=== PATIENT | male | born 1955 | race Hispanic/Latino ===

== ENCOUNTER 2018-11-19 10:24 | Day surgery (SDC) | payer OTHER ==
[2018-11-19] MEDS ORDERED: GENTAMICIN 80 MG/100 ML BAG 80 MG/100 ML BAG IV ONE (11:00)
[2018-11-19] MEDS ORDERED: NA CHLORIDE 0.9% 1,000 ML ONE (11:00)
[2018-11-19] MEDS ORDERED: PROPOFOL 200 MG/20 ML VIAL IV ONE (11:33)
[2018-11-19] MEDS ORDERED: LIDOCAINE JELLY 2%- 5 ML TUBE ONE (11:34)
[2018-11-19] MEDS ORDERED: FENTANYL CITR 100 MCG/2 ML ONE (11:34)
[2018-11-19] MEDS ORDERED: MIDAZOLAM HCL 2 MG/2 ML INJ ONE (11:34)
[2018-11-19] MEDS ORDERED: OXYBUTYNIN CHLORIDE 5 MG TAB ONE (15:05)
[2018-11-19] MEDS ORDERED: HYDROCODONE/APAP 10/325 TAB ONE (15:05)
[2018-11-19] MEDS ORDERED: TRAMADOL HCL 50 MG TAB PO PRN (18:15)
[2018-11-19] MEDS ORDERED: DIPHENHYDRAMINE 25 MG TAB/CAP PO PRN (18:16)
[2018-11-19] MEDS ORDERED: D50W 25 GM/50 ML SYRINGE IV PRN (19:47)
[2018-11-19] MEDS ORDERED: GLUCAGON 1 MG/VIAL IM PRN (19:47)
[2018-11-19] MEDS ORDERED: HYDRALAZINE HCL 20 MG/ML VIAL IV PRN (19:49)
[2018-11-19] MEDS ORDERED: NACHLORIDE 0.45% 1,000 ML with POTASSIUM CL 20 MEQ IV SCH ×2 (20:00)
[2018-11-19] MEDS ORDERED: NA CHLORIDE 0.9% 1,000 ML IV SCH (20:00)
--- NOTE | 2018-11-19 20:06 | P.CNS ---
Date of Consult: 11/19/18 Reason for Consult: medical management Requesting Physician: Kaleigh Montes Primary Care Provider: Dr Arredondo. Chief Complaint: S/P TURP History of Present Illness: Mr Kat is a 63 years old male with history of DM II, HTN and CVA, who was admitted by Dr Montes in order to do a scheduled TURP. The procedure was done today, without immediate jessica-operative complications. Hospitalist team, was called in order to co-management his chronic medical problems. He denied chest pain or SOB. No nausea or vomiting either. BP in on the higher side, 182/78, he denied pain at the moment. The patient is on CBI and feels comfortable. Allergies No Known Allergies Allergy (Verified 12/06/11 16:25) Home medications list reviewed: Yes Home Medications: Aspirin 325 mg PO BID #0 tablet 12/29/11 Atorvastatin Calcium 20 mg PO BEDTIME #0 tablet 12/29/11 Diltiazem HCl [Cardizem] 30 mg PO DAILY #0 tablet 12/29/11 Glyburide 5 mg PO DAILY #0 tablet 12/29/11 Lisinopril 20 mg PO DAILY #0 tablet 12/29/11 Metformin HCl [Glucophage] 500 mg PO BIDWM #0 tablet 12/29/11 Metoprolol Tartrate 50 mg PO BID #0 12/29/11 - Past Medical/Surgical History Diabetic: Yes -: DM II -: HTN -: Hx of CVA Past Surgical History: Reviewed- Non-Contributory - Family History Mother Family History: Reviewed- Non-Contributory - Social History Smoking Status: Never smoker Alcohol use: No CD- Drugs: No Caffeine use: Yes Place of Residence: Home Review of Systems 10-point ROS is otherwise unremarkable Physical Examination Temp Pulse Resp BP Pulse Ox 97 F 57 18 168/71 H 98 11/19/18 18:05 11/19/18 18:05 11/19/18 18:05 11/19/18 18:05 11/19/18 18:00 General: Alert, In no apparent distress HEENT: Atraumatic, PERRLA, Mucous membr. moist/pink, EOMI, Sclerae nonicteric Neck: Supple, 2+ carotid pulse no bruit, No LAD, Without JVD or thyroid abnormality Respiratory: Clear to auscultation bilaterally, Normal air movement Cardiovascular: Regular rate/rhythm, Normal S1 S2 Gastrointestinal: Normal bowel sounds, No tenderness Musculoskeletal: No tenderness Integumentary: No rashes Neurological: Normal speech, Normal tone, Normal affect Lymphatics: No axilla or inguinal lymphadenopathy - Problems (1) S/P TURP Current Visit: Yes Status: Acute Plan: Per primary team. (2) Diabetes mellitus Current Visit: Yes Status: Acute Plan: Check HgbA1c, Continue SSI while is in the hospital. Qualifiers: Diabetes mellitus type: type 2 Diabetes mellitus [employer] insulin use: without chcf use Diabetes mellitus complication status: with unspecified complications Qualified Code(s): E11.8 - Type 2 diabetes mellitus with unspecified complications (3) HTN (hypertension) Current Visit: Yes Status: Acute Plan: Will resume his home medication at his normal schedule, including Metoprolol, Lisinopril and Diltiazem. Will order PRN IV hydralazine. Stop IV fluids since BP is on the higher side. Qualifiers: Hypertension type: essential hypertension Qualified Code(s): I10 - Essential (primary) hypertension (4) History of CVA (cerebrovascular accident) Current Visit: Yes Status: Acute Plan: Stable, will resume ASA when Dr Montes agree. Critical Care: No Time Spent Managing Pts care (In Minutes): 60
[2018-11-19] MEDS: INSULIN -REGULAR HUMAN 50 UNIT/0.5 ML ML SQ SCH (20:24)
[2018-11-19] MEDS: METOPROLOL TAR 50 MG TAB PO SCH (21:13)
[2018-11-19 21:55] VITALS: BMI 25.0
[2018-11-20] MEDS: NACL 0.9% IRR SOLN 2,000 ML IRR SCH ×3 (00:48→07:18)
[2018-11-20 02:13] VITALS: O2SAT 98
[2018-11-20 06:21] LABS: Absolute Lymphocytes (CBC) 2.6 K/uL (0.7-4.9); Absolute Monocytes 0.7 K/uL (0.1-1.3); Absolute Neutrophil 4.9 K/uL (1.8-8.0); Basophils % 0.4 % (0-1.3); Hematocrit 40.3 % (39.6-49.0); Lymphocytes % 30.8 % (15.3-44.8); MPV 9.4 fL (7.6-11.3); Monocytes % 8.2 % (3.3-12.3); RBC Red Blood Cell Count 4.58 M/uL (4.33-5.43)
[2018-11-20 06:29] LABS: BUN Blood Urea Nitrogen 10 mg/dL (7-18); Bicarbonate 23 mmol/L (21-32); Glucose Level 220 mg/dL (74-106); Potassium 4.2 mmol/L (3.5-5.1); Sodium Level 138 mmol/L (136-145)
[2018-11-20] MEDS: INSULIN -REGULAR HUMAN 50 UNIT/0.5 ML ML SQ SCH ×2 (07:30→11:30)
[2018-11-20] MEDS ORDERED: LISINOPRIL 20 MG TAB PO SCH (09:00)
[2018-11-20] MEDS ORDERED: DILTIAZEM HCL 60 MG TAB PO SCH (09:00)
[2018-11-20] MEDS: METOPROLOL TAR 50 MG TAB PO SCH (09:26)
[2018-11-20 12:21] VITALS: TEMP 97.3
--- NOTE | 2018-11-20 12:34 | P.PN ---
Subjective Date of Service: 11/20/18 Primary Care Provider: Dr Arredondo. Chief Complaint: S/P TURP Subjective: No new changes Review of Systems 10-point ROS is otherwise unremarkable Physical Examination - Vital Signs Temperature: 97.3 F Blood Pressure: 181/81 Pulse: 70 Respirations: 18 Pulse Ox (%): 97 - Physical Exam General: Alert, In no apparent distress, Oriented x3 HEENT: Atraumatic, PERRLA, EOMI Neck: Supple, JVD not distended Respiratory: Clear to auscultation bilaterally, Normal air movement Cardiovascular: Regular rate/rhythm, Normal S1 S2 Gastrointestinal: Normal bowel sounds, No tenderness Musculoskeletal: No tenderness Integumentary: No rashes Neurological: Normal speech, Normal tone, Normal affect, Abnormal strength (Left -sided weakness) - Studies Laboratory Data (last 24 hrs) 11/20/18 05:58: Sodium 138, Potassium 4.2, BUN 10, Creatinine 0.66, Glucose 220 H 11/20/18 05:58: WBC 8.3 D, Hgb 13.9, Hct 40.3, Plt Count 241 Medications List Reviewed: Yes Assessment And Plan - Current Problems (Diagnosis) (1) Diabetes mellitus Current Visit: Yes Status: Acute Qualifiers: Diabetes mellitus type: type 2 Diabetes mellitus fdc insulin use: without fdc use Diabetes mellitus complication status: with hyperglycemia Qualified Code(s): E11.65 - Type 2 diabetes mellitus with hyperglycemia (2) HTN (hypertension) Current Visit: Yes Status: Acute Qualifiers: Hypertension type: essential hypertension Qualified Code(s): I10 - Essential (primary) hypertension (3) History of CVA (cerebrovascular accident) Current Visit: Yes Status: Acute (4) S/P TURP Current Visit: Yes Status: Acute (5) HLD (hyperlipidemia) Current Visit: Yes Status: Acute Qualifiers: Hyperlipidemia type: mixed hyperlipidemia Qualified Code(s): E78.2 - Mixed hyperlipidemia - Plan Will adjust sliding scale insulin Continue Accu-Cheks Resume home medications as appropriate Will follow along with you
[2018-11-20 14:53] VITALS: BP 156/81
[2018-11-21] MEDS ORDERED: GLIMEPIRIDE 2 MG TABLET PO SCH (08:00)
[2018-11-21] MEDS ORDERED: FINASTERIDE 5 MG TAB PO SCH (09:00)
[2018-11-21] MEDS ORDERED: TAMSULOSIN 0.4 MG SR CAP PO SCH (09:00)
== END 2018-11-20 14:50 | disposition home or self-care (01) ==
LOC: OR 10:24 → 2ND 16:48 → OR 11-20 14:50
PROVIDERS: ATTEND Urology
PROC: 0V508ZZ Destruction of Prostate, Via Natural or Artificial Opening Endoscopic (ICD-10-PCS; principal; 2018-11-19 13:00)
DX: N40.1 Benign prostatic hyperplasia with lower urinary tract symptoms (principal); N13.8 Other obstructive and reflux uropathy; R39.12 Poor urinary stream; R30.0 Dysuria; N45.2 Orchitis; N45.1 Epididymitis; N52.9 Male erectile dysfunction, unspecified; E11.65 Type 2 diabetes mellitus with hyperglycemia; E78.2 Mixed hyperlipidemia; I10 Essential (primary) hypertension; I69.354 Hemiplegia and hemiparesis following cerebral infarction affecting left non-dominant side; Z79.82 Long term (current) use of aspirin; Z79.84 Long term (current) use of oral hypoglycemic drugs; Z79.899 Other long term (current) drug therapy
CPT/HCPCS: 52601; 83036; 85025; 80048; 36415; 82962 ×5; 88305; J2704; J2250; J3010; J7030; J1580